=== PATIENT | male | born 1955 ===

== ENCOUNTER 2019-06-08 06:12 | Day surgery (SDC) | payer OTHER ==
[~2019-06-08] VITALS: Ht 160 cm; Wt 65.0 kg
[2019-06-08 06:47] VITALS: BP 135/83
[2019-06-08] MEDS ORDERED: ACETAMINOPHEN 500 MG TABLET PO STA (06:55)
[2019-06-08] MEDS ORDERED: LACTATED RINGERS 1,000 ML IV SCH (06:56)
[2019-06-08] MEDS ORDERED: POLY15DR8 EACHEYE (07:29)
[2019-06-08] MEDS ORDERED: AMLO10TA8 PO (07:29)
[2019-06-08] MEDS ORDERED: ASPI-496 PO (07:29)
[2019-06-08] MEDS ORDERED: CALC625T13 PO (07:29)
[2019-06-08] MEDS ORDERED: ACET325T26 PO (07:29)
[2019-06-08] MEDS ORDERED: EPHEDRINE 50 MG/ML, 1ML IVPush PRN (07:30)
[2019-06-08] MEDS ORDERED: MEPERIDINE/PF 25MG/ML,1ML IVPush PRN (07:30)
[2019-06-08] MEDS ORDERED: ONDANSETRON 2MG/ML, 2ML IV PRN (07:30)
[2019-06-08] MEDS ORDERED: hydrALAzine 20 MG/ML, 1ML IV PRN (07:30)
[2019-06-08] MEDS ORDERED: HYDROmorphone 2 MG/ML, 1ML IVPush PRN (07:30)
[2019-06-08] MEDS ORDERED: OXYcodone 5 MG/5 ML ORAL.SOL UDC PO PRN (07:30)
[2019-06-08] MEDS ORDERED: LABETALOL 5MG/ML, 20ML IV PRN (07:30)
[2019-06-08] MEDS ORDERED: PROMETHAZINE 25 MG/ML, 1ML IV PRN (07:30)
[2019-06-08] MEDS ORDERED: FENTANYL PF 100 MCG/2ML IV PRN (07:30)
[2019-06-08 07:43] LABS: ANION GAP 7 mmol/L (5-15); CALCIUM 9.3 mg/dL (8.5-10.1); CHLORIDE 104 mmol/L (98-107)
[2019-06-08 07:44] LABS: ALANINE AMINOTRANSFERASE 28 U/L (12-78); ALBUMIN 3.9 g/dL (3.4-5.0)
[2019-06-08 07:46] LABS: ALKALINE PHOSPHATASE 70 U/L (45-117); BILIRUBIN,TOTAL 0.6 mg/dL (0.2-1.0); TOTAL PROTEIN 8.4 g/dL (6.4-8.2)
[2019-06-08] MEDS ORDERED: LIDOCAINE 1%, 20ML ONE (07:49)
[2019-06-08] MEDS ORDERED: BUPIVACAINE/PF 0.5% ONE (07:49)
[2019-06-08] MEDS ORDERED: SODIUM CHLORIDE 0.9% PF 10ML ONE (08:04)
[2019-06-08] MEDS ORDERED: ONDANSETRON 2MG/ML, 2ML ONE (08:04)
[2019-06-08] MEDS ORDERED: LIDOCAINE-MPF 2% ,5ML ONE (08:04)
[2019-06-08] MEDS ORDERED: PROPOFOL 10 MG/ML, 20ML ONE (08:04)
[2019-06-08] MEDS ORDERED: DEXAMETHASONE 4 MG/ML, 1ML ONE ×2 (08:04)
[2019-06-08] MEDS ORDERED: CEFAZOLIN 1,000 MG ONE ×2 (08:04)
[2019-06-08] MEDS ORDERED: FENTANYL PF 100 MCG/2ML ONE (08:05)
[2019-06-08] MEDS ORDERED: KETOROLAC 30 MG/1 ML ONE (08:05)
[2019-06-08] MEDS ORDERED: MIDAZOLAM 1 MG/ML, 2ML ONE (08:05)
[2019-06-08] MEDS ORDERED: EPHEDRINE 50 MG/ML, 1ML ONE (09:29)
[2019-06-08] MEDS ORDERED: GLYCOPYRROLATE 0.2MG/1ML, 5ML ONE (09:31)
[2019-06-08] MEDS ORDERED: OXYcodone 5 MG/5 ML ORAL.SOL UDC ONE (10:14)
== END 2019-06-08 11:05 | disposition home or self-care (01) ==
LOC: OUT 06:12
PROVIDERS: ATTEND Orthopaedic Surgery
DX: M72.0 Palmar fascial fibromatosis [Dupuytren] (principal); I10 Essential (primary) hypertension; Z79.82 Long term (current) use of aspirin; Z79.1 Long term (current) use of non-steroidal anti-inflammatories (NSAID); Z79.899 Other long term (current) drug therapy
CPT/HCPCS: 26121; 36415; 80053; 88304; 93005; J0690; J1100; J1885; J2250; J2405; J2704; J3010; J7120